=== PATIENT | male | born 1970 | race Caucasian/White ===

== ENCOUNTER → 2017-07-08 | Outpatient (REF) ==
[~2017-07-08] MED LIST: ACE3 PO; ACE325 PO; ACE500 PO; ACET-1966 PO; ALB17R INH; AMLO-96 PO; ASP325 PO; ASPI-1471 PO; BENZ100C4 PO; CELE-1 PO; CELE50CA2 PO; CEP500 PO; CLI150 PO; CYC10 PO; CYCL10TA29 PO; DOXY-179 PO; ELET20TA2 PO; ENAL1TAB35 PO; ENAL20TA99 PO; ESC10 PO; ESCI20TA38 PO; GUAI600T84; HCTZ; HYDR-2966 PO; IBU200 PO; IBU600 PO; KET10 PO; LAMO200T46 PO; LITHOBID PO; LOR10 PO; LOR5 PO; LOR5/325 PO; LORATADINE; LYRICA; MET10 PO; METO50TA19 PO; MULT1CAP41 PO; NALT50TA15 PO; NAP500 PO; NO MEDS; NO ROUTINE MEDS; PAN20 PO; PER PO; PREG100C45 PO; PROP100T2 PO; SCOT TD; SIMV-49 PO; TRA50 PO
--- NOTE | 2017-07-08 14:21 | RADIOLOGY IMAGING REPORT ---
[place] [facility] [place] NAME: Jalil Lord : 1970 MR: [id number] V: [id number] EXAM DATE: ORDERING PHYSICIAN: TENZIN LUCAS TECHNOLOGIST: [place] [facility] [place] Jalil Lord : 1970 Visit/Account:[id number] Date of Sevice: 07/08/2017 Exam type: FOOT 3 VIEW RIGHT History: Pain in ball of right foot, no known injury Comparison: None. Findings: There is no evidence of acute fracture, dislocation or significant arthritic change involving the rig ht foot. No opaque soft tissue foreign bodies are seen. IMPRESSION: 1. No acute osteoarticular abnormality of the right foot is seen Report Dictated By: Pastora Montes De Oca MD at 07/08/2017 2:15 PM Report E-Signed By: Pastora Montes De Oca MD at 07/08/2017 2:17 PM WSN:[email or web address]
== END ==
LOC: RAD 11:19
PROVIDERS: ATTEND Nurse Practitioner
DX: M79.671 Pain in right foot (principal)

== ENCOUNTER → 2017-07-09 | Outpatient (REF) ==
--- NOTE | 2017-07-09 14:36 | RADIOLOGY IMAGING REPORT ---
FACILITY: [facility] PATIENT NAME: Jalil Lord : 1970 MR: [id number] V: [id number] EXAM DATE: ORDERING PHYSICIAN: TENZIN LUCAS TECHNOLOGIST: Location: [facility] [place] Patient: Jalil Lord : 1970 Visit/Account:[id number] Date of Sevice: 07/09/2017 Exam type: VENOUS DOPP LOW RIGHT EXTREMIT History: Right calf pain Comparison: None. Findings: Right lower extremity veins were imaged including the right common femoral vein or saphenous vein sup erficial femoral vein popliteal vein posterior tibial vein anterior tibial vein and peroneal veins re vealing no evidence of intraluminal thrombi. The veins were compressible and demonstrated augmentati on. IMPRESSION: 1. No sonographic evidence DVT involving the right lower extremity veins Report Dictated By: Pastora Montes De Oca MD at 07/09/2017 2:30 PM Report E-Signed By: Pastora Montes De Oca MD at 07/09/2017 2:31 PM WSN:[email or web address]
== END ==
LOC: US 12:57
PROVIDERS: ATTEND Nurse Practitioner
DX: M79.604 Pain in right leg (principal)

== ENCOUNTER → 2017-07-12 | Outpatient (REF) ==
--- NOTE | 2017-07-12 13:00 | RADIOLOGY IMAGING REPORT ---
FACILITY: [facility] - [place] PATIENT NAME: Jalil Lord : 1970 MR: [id number] V: [id number] EXAM DATE: ORDERING PHYSICIAN: TENZIN LUCAS TECHNOLOGIST: Location: [facility] Patient: Jalil Lord : 1970 Visit/Account:[id number] Date of Sevice: 07/12/2017 Exam type: ORBITS FOREIGN BODY 1 VIEW History: Pre-MRI screening Comparison: None. Findings: No radiopaque metallic foreign bodies project over the orbits. Soft tissue density projects over the superior aspect of the left maxillary sinus likely related to polyps versus mucous retention cysts a s seen on a prior head CT from December 14, 2007 IMPRESSION: 1. No radiopaque metallic foreign bodies project over the orbits Report Dictated By: Pastora Montes De Oca MD at 07/12/2017 12:55 PM Report E-Signed By: Pastora Montes De Oca MD at 07/12/2017 12:56 PM WSN:[email or web address]
--- NOTE | 2017-07-12 15:24 | RADIOLOGY IMAGING REPORT ---
FACILITY: [facility] - [place] PATIENT NAME: Jalil Lord : 1970 MR: [id number] V: [id number] EXAM DATE: ORDERING PHYSICIAN: TENZIN LUCAS TECHNOLOGIST: Location: [facility] Patient: Jalil Lord : 1970 Visit/Account:[id number] Date of Sevice: 07/12/2017 MRI right foot Indication: Foot pain. Comparison: Plain films March 07, 2018 are reviewed. Technique: Sagittal STIR, coronal long axis T1-weighted and T2-weighted fat saturated, short axis axi al T2-weighted fat-saturated images were obtained through the right foot. Findings: There is abnormal, marrow edema identified within the distal shaft of the second metatarsal which ext ends into the neck and head region. Best seen on the T1 sagittal sequence, there is a linear fracture line within the second metatarsal neck. The marrow edema is centered about this subtle fracture line . No radiographic correlate on the recent plain films. Differential would favor a second metatarsal s tress fracture. There is surrounding soft tissue edema and periosteal edema. There are changes of ost eoarthritis at the second metatarsophalangeal joint. There is marrow edema seen within the base of th e proximal phalanx of the second toe. No discrete fracture line. This may be stress related as well. No other fractures identified. With respect to the hindfoot, the marrow pattern of the distal tibia, distal fibula, talus and calcan eus is normal. Hindfoot joints are maintained. The midfoot marrow pattern and the midfoot joints are normal. There are changes of osteoarthritis involving the first metatarsophalangeal joint. Subchondral edema is seen within the first metatarsal head. Intrinsic musculature of the foot is normal in signal. No atrophy. Flexor and extensor tendons appear intact. IMPRESSION: 1. Right foot second metatarsal stress fracture at the neck of the distal second metatarsal with surr ounding marrow edema and periosteal edema. 2. Abnormal marrow edema within the base of the proximal phalanx of the second toe. This may also be stress related. 3. 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 Report Dictated By: Emeka Don at 07/12/2017 3:04 PM Report E-Signed By: Emeka Don at 07/12/2017 3:20 PM WSN:[email or web address]
== END ==
LOC: MRI 07:33
PROVIDERS: ATTEND Nurse Practitioner
DX: M84.374A Stress fracture, right foot, initial encounter for fracture (principal); M19.071 Primary osteoarthritis, right ankle and foot
CPT/HCPCS: 70030; 73718

== ENCOUNTER → 2018-01-20 | Outpatient (REF) ==
--- NOTE | 2018-01-20 10:23 | RADIOLOGY IMAGING REPORT ---
FACILITY: [facility] - [place] PATIENT NAME: Jalil Lord : 1970 MR: [id number] V: [id number] EXAM DATE: ORDERING PHYSICIAN: TENZIN LUCAS TECHNOLOGIST: Location: [facility] Patient: Jalil Lord : 1970 Visit/Account:[id number] Date of Sevice: 01/20/2018 LIVER HISTORY: Elevated LFTs COMPARISON: None. FINDINGS: Gallbladder: Unremarkable; no stones or sludge. Liver: There are multiple hepatic cysts largest measuring 2.2 cm in diameter in the right lobe Common duct: Normal, pre-point three mm diameter. Pancreas: Partially obscured by bowel, visualized aspects unremarkable. Right kidney: I kidney appears unremarkable measuring 11.3 cm in length Upper abdominal aorta and IVC: Patent. Ascites: None visualized. IMPRESSION: Multiple hepatic cysts Report Dictated By: Pastora Montes De Oca MD at 01/20/2018 10:18 AM Report E-Signed By: Pastora Montes De Oca MD at 01/20/2018 10:20 AM WSN:[email or web address]
== END ==
LOC: US 01:39
PROVIDERS: ATTEND Nurse Practitioner
DX: K76.89 Other specified diseases of liver (principal)
CPT/HCPCS: 76705

== ENCOUNTER 2018-02-19 16:15 | Emergency (ER) | payer SELFPAY ==
[~2018-02-19 16:15] MED LIST changes: +AMLO-111 PO; -AMLO-96 PO
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
[2018-02-19] MEDS ORDERED: ATOR20TA22 PO (16:30)
[2018-02-19] MEDS ORDERED: ALBU8.5H IH ×2 (16:30→17:42)
--- NOTE | 2018-02-19 16:34 | EKG ---
FACILITY: [facility] - [place] PATIENT NAME: MICAH ENGLAND : [id number] MR: [id number] V: [id number] EXAM DATE: ORDERING PHYSICIAN: TROY PÉREZ TECHNOLOGIST: JADA Test Reason : ARM PAIN Blood Pressure : / mmHG Vent. Rate : 063 BPM Atrial Rate : 063 BPM P-R Int : 142 ms QRS Dur : 088 ms QT Int : 434 ms P-R-T Axes : 071 070 041 degrees QTc Int : 444 ms Sinus rhythm Poor R wave progression through anterior leads Nonspecific ST-T findings Confirmed by SAKINA CORONEL ([id number]) on 02/20/2018 3:19:26 AM Referred By: REVA Confirmed By:SAKINA CORONEL
[2018-02-19] MEDS ORDERED: ASPIRIN 81 MG CHEW PO ONE (16:45)
[2018-02-19] MEDS ORDERED: ALBUTEROL/IPRATROPIUM 3 ML NEB NEB ONE (16:45)
[2018-02-19 16:56] LABS: PLATELET COUNT, AUTOMATED 159 K/uL (150-450)
--- NOTE | 2018-02-19 17:17 | RADIOLOGY IMAGING REPORT ---
FACILITY: [facility] [place]IENT NAME: Jalil Lord : 1970 MR: [id number] V: [id number] EXAM DATE: ORDERING PHYSICIAN: TROY PÉREZ TECHNOLOGIST: Location: [facility] - [place] Patient: Jalil Lord : 1970 Visit/Account:[id number] Date of Sevice: 02/19/2018 EXAMINATION: Chest 2 Views HISTORY: Chest pressure. COMPARISON: 03/01/2017. FINDINGS: The lungs are hyperinflated but otherwise clear. No focal consolidation or pleural effusion. No pne umothorax. Normal cardiomediastinal silhouette, with normal heart size and pulmonary vascularity. Visualized osseous structures appear intact. IMPRESSION: 1. Stable hyperinflation of the lungs. 2. Chest otherwise negative. Report Dictated By: César Saldana MD at 02/19/2018 5:11 PM Report E-Signed By: César Saldana MD at 02/19/2018 5:12 PM WSN:[email or web address]
--- NOTE | 2018-02-19 17:21 | RADIOLOGY IMAGING REPORT ---
FACILITY: [facility] [place] PATIENT NAME: Jalil Lrod : 1970 MR: [id number] V: [id number] EXAM DATE: ORDERING PHYSICIAN: TROY PÉREZ TECHNOLOGIST: Location: [facility] Patient: Jalil Lord : 1970 Visit/Account:[id number] Date of Sevice: 02/19/2018 EXAMINATION: Right shoulder 2 views. HISTORY: Right shoulder pain. COMPARISON: None FINDINGS: No evidence of acute fracture or dislocation about the right shoulder. Normal alignment at the glenoh umeral and acromioclavicular joints. The subacromial space is preserved. Visualized upper right ribs appear intact. IMPRESSION: Negative right shoulder. Report Dictated By: César Saldana MD at 02/19/2018 5:12 PM Report E-Signed By: César Saldana MD at 02/19/2018 5:17 PM WSN:[email or web address]
[2018-02-19] MEDS ORDERED: predniSONE 20 MG TAB PO ONE (17:40)
[2018-02-19] MEDS ORDERED: PRED20TA6 PO (17:41)
[2018-02-19 17:42] VITALS: BP 144/97
== END 2018-02-19 17:59 | disposition home or self-care (01) ==
LOC: ER 16:24
DX: J44.1 Chronic obstructive pulmonary disease with (acute) exacerbation (principal); F17.210 Nicotine dependence, cigarettes, uncomplicated
CPT/HCPCS: 71046; 73030; 84484; 85025; 93005; 94640; 99284; J7512; J7620; 82040; 82247; 82310; 82374; 82435; 82565; 82947; 84075; 84132; 84155; 84295; 84450; 84460; 84520

== ENCOUNTER → 2018-05-05 | Outpatient (REF) ==
[~2018-05-05] MED LIST changes: +ALBU8.5H IH; +ATOR20TA22 PO; +PRED20TA6 PO
--- NOTE | 2018-05-05 13:53 | RADIOLOGY IMAGING REPORT ---
FACILITY: [facility] PATIENT NAME: Jalil Lord : 1970 MR: [id number] V: [id number] EXAM DATE: ORDERING PHYSICIAN: JESUS LANCASTER TECHNOLOGIST: Location: [facility] - [place] Patient: Jalil Lord : 1970 Visit/Account:[id number] Date of Sevice: 05/05/2018 SHOULDER MIN 2 VIEWS RIGHT HISTORY: Shoulder pain Additional history: None COMPARISON: None. FINDINGS: Osseous structures the right shoulder girdle are intact. No evidence of osteoarthrosis the right gle nohumeral joint. There is downsloping of the acromion process. IMPRESSION: No acute pathology identified. Downsloping acromion process which is a normal variant although can predispose to rotator cuff pathol ogy. Report Dictated By: Mohinder Medel MD at 05/05/2018 1:46 PM Report E-Signed By: Mohinder Medel MD at 05/05/2018 1:47 PM WSN:[email or web address] CARLOS
== END ==
LOC: RAD 12:15
PROVIDERS: ATTEND Orthopaedic Surgery Orthopaedic Surgery of the Spine
DX: M25.511 Pain in right shoulder (principal)

== ENCOUNTER → 2018-08-11 | Outpatient (REF) ==
[~2018-08-11] MED LIST changes: -AMLO-111 PO; +AMLO-125 PO
--- NOTE | 2018-08-11 11:20 | RADIOLOGY IMAGING REPORT ---
FACILITY: [facility] - [place] PATIENT NAME: Jalil Lord : 1970 MR: [id number] V: [id number] EXAM DATE: ORDERING PHYSICIAN: ADRIANNE MURRELL TECHNOLOGIST: Location: [facility] Patient: Jalil Lord : 1970 Visit/Account:[id number] Date of Sevice: 08/11/2018 Right elbow, three views. HISTORY: Fall three days ago, right elbow pain. COMPARISON: 04/11/2007 Minimal soft tissue swelling is present in the posterior elbow. The bones, joints, and soft tissues are otherwise unremarkable. No joint space narrowing. No evidence of joint effusion. No fractures a re identified. IMPRESSION: Negative for acute bony abnormality. Report Dictated By: Omar West MD at 08/11/2018 11:13 AM Report E-Signed By: Omar West MD at 08/11/2018 11:15 AM WSN:[email or web address]
--- NOTE | 2018-08-11 11:55 | RADIOLOGY IMAGING REPORT ---
FACILITY: [facility] PATIENT NAME: Jalil Lord : 1970 MR: [id number] V: [id number] EXAM DATE: ORDERING PHYSICIAN: ADRIANNE MURRELL TECHNOLOGIST: Location: [facility] [place] Patient: Jalil Lord : 1970 Visit/Account:[id number] Date of Sevice: 08/11/2018 Technique: SHOULDER MIN 2 VIEWS RIGHT HISTORY: Right arm pain Comparison studies: None FINDINGS: There is no acute fracture. The alignment of the right shoulder is congruent. There is ma rginal osteophytosis at the acromioclavicular joint. Soft tissues are unremarkable. IMPRESSION: 1. Mild degenerative changes at the acromioclavicular joint. Report Dictated By: Conor Kern DO at 08/11/2018 11:44 AM Report E-Signed By: Conor Kern DO at 08/11/2018 11:52 AM WSN:[email or web address]
== END ==
LOC: RAD 10:06
PROVIDERS: ATTEND Registered Nurse Psychiatric/Mental Health
DX: M25.511 Pain in right shoulder (principal); M25.521 Pain in right elbow

== ENCOUNTER 2018-09-21 17:02 | Emergency (ER) | payer SELFPAY ==
[~2018-09-21 17:02] MED LIST changes: -CEPH500T7 PO
[2018-09-21] MEDS ORDERED: ASPIRIN 81 MG CHEW PO ONE (17:25)
--- NOTE | 2018-09-21 17:35 | ER Report ---
History and Physical Time Seen By MD: 17:25 Hx. of Stated Complaint: PATIENT REPORTS LEFT UPPER BACK PAIN SINCE WEDNESDAY. WAS SEEN AT THE [facility] AND TOLD TO COME GET A CAT SCAN OF THE CHEST (ALIN RICHARDSON MD) HPI/ROS CHIEF COMPLAINT: Chest pain HISTORY OF PRESENT ILLNESS:48-year-old male comes emergency Department today with complaint of chest pain patient was seen at the [facility] reportedly awoke this morning with left-sided inferior rib pain patient is a long history of chronic pain issues over this is different than his baseline is also long history of COPD and is a smoker very thin and cachectic looking. Patient was sent here after having an elevated d-dimer no chest x-ray was performed no EKG was performed CBC was also performed. Due to the elevated d-dimer concerns this is a possible pulmonary embolus and was sent to the emergency department. Pain is also in with a CVA [place] so this could also be something else considering kidney stone or other pathology however due to the elevated d-dimer compelled to get CT scan for rule out patient other complaint is a mild nonproductive cough which is chronic in nature REVIEW OF SYSTEMS: Respiratory: Cough no shortness of breath Cardiovascular: Chest pain or palpitation Gastrointestinal: No vomiting, no abdominal pain. Musculoskeletal: Left flank back pain. Remainder of the 14 system rev: Yes (ALIN RICHARDSON MD) Allergies: Coded Allergies: Penicillins (Verified Allergy, Mild, 02/19/18) bupropion (Verified Allergy, Mild, 02/19/18) hydrocodone (Verified Allergy, Mild, ITCHING, 02/19/18) lactose (Verified Allergy, Mild, VOMITING, 02/19/18) lamotrigine (Verified Allergy, Mild, RASH, 02/19/18) latex (Verified Allergy, Mild, RASH, DIFF BREATHING, 02/19/18) lithium (Verified Allergy, Mild, 02/19/18) Home Meds Active Scripts Cephalexin 500 Mg Tab (KEFLEX 500 MG TAB) 500 Mg Tablet, 500 MG PO TID for i nfection, #20 TAB Prov:DONAVON VALDIVIA DO 09/21/18 Albuterol Sulfate 90 Mcg/Act (PROAIR HFA 90 MCG/ACT) 8.5 Gm Hfa.aer.ad, 2 PUFF IH Q4-6H, #1 INHALER 0 Refills Prov:TROY PÉREZ WHITE MIXING OPERATOR-BC 02/19/18 Prednisone (PREDNISONE) 20 Mg Tablet, 20 MG PO BID, #10 TAB Prov:TROY PÉREZ [facility]- 02/19/18 Reported Medications Albuterol Sulfate 90 Mcg/Act (PROAIR HFA 90 MCG/ACT) 8.5 Gm Hfa.aer.ad, 1-2 PUFF IH 3-4XD, INHALER 02/19/18 Atorvastatin Calcium (LIPITOR) 20 Mg Tablet, 1 TAB PO QDAY, TAB 02/19/18 Metoprolol Succinate (METOPROLOL SUCCINATE) 50 Mg Tab.er.24h, 2 TAB PO QDAY, TAB 03/01/17 Hydrochlorothiazide (HYDROCHLOROTHIAZIDE) 25 Mg Tablet, 1 TAB PO QDAY, TAB 03/09/16 Enalapril Maleate (ENALAPRIL MALEATE) 20 Mg Tablet, 20 MG PO QDAY 03/09/16 Reviewed Nurses Notes: Yes Old Medical Records Reviewed: Yes (ALIN RICHARDSON MD) Hx Smoking: Yes Smoking Status: Current: Every Day Smoker Hx Substance Use Disorder: Yes (alcohol) Hx Alcohol Use: Yes (using since age 15) (ALIN RICHARDSON MD) Constitutional Vital Sign - Last 24 Hours 09/21/18 09/21/18 09/21/18 09/21/18 17:08 17:10 17:22 17:30 Pulse 68 Resp 26 B/P (MAP) 137/100 (112) 138/102 (114) Pulse Ox 97 O2 Delivery Room Air 09/21/18 09/21/18 09/21/18 09/21/18 17:42 18:00 18:02 18:22 Pulse 68 67 69 Resp 25 25 25 B/P (MAP) 136/96 (109) Pulse Ox 93 94 94 09/21/18 09/21/18 18:30 18:42 Pulse 71 B/P (MAP) 128/95 (106) (DONAVON VALDIVIA DO) Physical Exam General Appearance: [The patient is alert, has no immediate need for airway protection and no current signs of toxicity.] [ ] Eyes: Pupils equal and round no injection. Respiratory: Mild tenderness to palpation of the left CV angle and percussive tenderness breath sounds normal Cardiac: regular rate and rhythm [ ] Gastrointestinal: Abdomen is soft and non tender, no masses, bowel sounds normal. Musculoskeletal: Neck: Neck is supple and non tender. Extremities have full range of motion and are non tender. Skin: No rashes or lesions. [ ] DIFFERENTIAL DIAGNOSIS: After history and physical exam differential diagnosis was considered for pulmonary embolus kidney stone pneumothorax muscle strain intercostal rib strain spontaneous fracture spontaneous pneumo (ALIN RICHARDSON MD) Medical Decision Making Data Points Result Diagram: 09/21/18 1736 09/21/18 1736 Laboratory Hematology Test 09/21/18 17:36 09/21/18 18:40 Red Blood Count 4.57 M/uL (4.00-5.60) Mean Corpuscular Volume 101.8 fL (80.0-96.0) Mean Corpuscular Hemoglobin 35.5 pg (26.0-33.0) Mean Corpuscular Hemoglobin Concent 34.9 g/dL (32.0-36.0) Red Cell Distribution Width 13.4 % (11.5-14.5) Mean Platelet Volume 9.0 fL (7.2-11.1) Neutrophils (%) (Auto) 58.3 % (39.4-72.5) Lymphocytes (%) (Auto) 26.0 % (17.6-49.6) Monocytes (%) (Auto) 13.2 % (4.1-12.4) Eosinophils (%) (Auto) 1.4 % (0.4-6.7) Basophils (%) (Auto) 1.1 % (0.3-1.4) Nucleated RBC Relative Count (auto) 0.1 /100WBC Neutrophils # (Auto) 4.6 K/uL (2.0-7.4) Lymphocytes # (Auto) 2.1 K/uL (1.3-3.6) Monocytes # (Auto) 1.1 K/uL (0.3-1.0) Eosinophils # (Auto) 0.1 K/uL (0.0-0.5) Basophils # (Auto) 0.1 K/uL (0.0-0.1) Nucleated RBC Absolute Count (auto) 0.01 K/uL Sodium Level 138 mmol/L (137-145) Potassium Level 4.0 mmol/L (3.5-5.0) Chloride Level 99 mmol/L (98-107) Carbon Dioxide Level 30 mmol/L (22-30) Blood Urea Nitrogen 18 mg/dl (9-21) Creatinine 0.60 mg/dl (0.66-1.25) Glomerular Filtration Rate Calc > 60.0 Random Glucose 94 mg/dl (75-110) Calcium Level 9.7 mg/dl (8.4-10.2) Total Bilirubin 0.8 mg/dl (0.2-1.3) Aspartate Amino Transf (AST/SGOT) 84 U/L (0-35) Alanine Aminotransferase (ALT/SGPT) 88 U/L (0-56) Alkaline Phosphatase 60 U/L (0-126) Troponin I < 0.012 ng/ml Total Protein 7.7 g/dl (6.3-8.2) Albumin 4.6 g/dl (3.5-5.0) Urine Color Yellow Urine Clarity Clear Urine pH 5.0 pH (4.8-9.5) Urine Specific Davy 1.011 Urine Protein Negative mg/dL (NEGATIVE) Urine Glucose (UA) Negative mg/dL (NEGATIVE) Urine Ketones Negative mg/dL (NEGATIVE) Urine Blood Negative (NEGATIVE) Urine Nitrite Negative (NEGATIVE) Urine Bilirubin Negative (NEGATIVE) Urine Urobilinogen Negative mg/dL (0.2-1.9) Urine Leukocyte Esterase Small (NEGATIVE) Urine RBC 1 /HPF (0-2/HPF) Urine WBC 15 /HPF (0-5/HPF) Urine Squamous Epithelial Cells None /LPF (</=FEW) Urine Bacteria Negative /HPF (NONE-FEW) Urine Mucus None /HPF (NONE-FEW) Chemistry Test 09/21/18 17:36 09/21/18 18:40 White Blood Count 8.0 k/uL (4.5-11.0) Red Blood Count 4.57 M/uL (4.00-5.60) Hemoglobin 16.2 g/dL (14.0-18.0) Hematocrit 46.6 % (42.0-52.0) Mean Corpuscular Volume 101.8 fL (80.0-96.0) Mean Corpuscular Hemoglobin 35.5 pg (26.0-33.0) Mean Corpuscular Hemoglobin Concent 34.9 g/dL (32.0-36.0) Red Cell Distribution Width 13.4 % (11.5-14.5) Platelet Count 168 K/uL (150-450) Mean Platelet Volume 9.0 fL (7.2-11.1) Neutrophils (%) (Auto) 58.3 % (39.4-72.5) Lymphocytes (%) (Auto) 26.0 % (17.6-49.6) Monocytes (%) (Auto) 13.2 % (4.1-12.4) Eosinophils (%) (Auto) 1.4 % (0.4-6.7) Basophils (%) (Auto) 1.1 % (0.3-1.4) Nucleated RBC Relative Count (auto) 0.1 /100WBC Neutrophils # (Auto) 4.6 K/uL (2.0-7.4) Lymphocytes # (Auto) 2.1 K/uL (1.3-3.6) Monocytes # (Auto) 1.1 K/uL (0.3-1.0) Eosinophils # (Auto) 0.1 K/uL (0.0-0.5) Basophils # (Auto) 0.1 K/uL (0.0-0.1) Nucleated RBC Absolute Count (auto) 0.01 K/uL Glomerular Filtration Rate Calc > 60.0 Calcium Level 9.7 mg/dl (8.4-10.2) Total Bilirubin 0.8 mg/dl (0.2-1.3) Aspartate Amino Transf (AST/SGOT) 84 U/L (0-35) Alanine Aminotransferase (ALT/SGPT) 88 U/L (0-56) Alkaline Phosphatase 60 U/L (0-126) Troponin I < 0.012 ng/ml Total Protein 7.7 g/dl (6.3-8.2) Albumin 4.6 g/dl (3.5-5.0) Urine Color Yellow Urine Clarity Clear Urine pH 5.0 pH (4.8-9.5) Urine Specific Davy 1.011 Urine Protein Negative mg/dL (NEGATIVE) Urine Glucose (UA) Negative mg/dL (NEGATIVE) Urine Ketones Negative mg/dL (NEGATIVE) Urine Blood Negative (NEGATIVE) Urine Nitrite Negative (NEGATIVE) Urine Bilirubin Negative (NEGATIVE) Urine Urobilinogen Negative mg/dL (0.2-1.9) Urine Leukocyte Esterase Small (NEGATIVE) Urine RBC 1 /HPF (0-2/HPF) Urine WBC 15 /HPF (0-5/HPF) Urine Squamous Epithelial Cells None /LPF (</=FEW) Urine Bacteria Negative /HPF (NONE-FEW) Urine Mucus None /HPF (NONE-FEW) Urinalysis Test 09/21/18 18:40 Urine Color Yellow Urine Clarity Clear Urine pH 5.0 pH (4.8-9.5) Urine Specific Davy 1.011 Urine Protein Negative mg/dL (NEGATIVE) Urine Glucose (UA) Negative mg/dL (NEGATIVE) Urine Ketones Negative mg/dL (NEGATIVE) Urine Blood Negative (NEGATIVE) Urine Nitrite Negative (NEGATIVE) Urine Bilirubin Negative (NEGATIVE) Urine Urobilinogen Negative mg/dL (0.2-1.9) Urine Leukocyte Esterase Small (NEGATIVE) Urine RBC 1 /HPF (0-2/HPF) Urine WBC 15 /HPF (0-5/HPF) Urine Squamous Epithelial Cells None /LPF (</=FEW) Urine Bacteria Negative /HPF (NONE-FEW) Urine Mucus None /HPF (NONE-FEW) (DONAVON VALDIVIA DO) EKG/Imaging Imaging Results: CT scan of the CTA pulmonary angiogram was obtained. The results of the study are CT CTA CHEST W & W/O CON HISTORY: chest pain ADDITIONAL HISTORY: None. TECHNIQUE: CTA chest with contrast. 3D coronal slab MIPs and 2D reconstructions in the coronal and sagittal planes were also created. One of the following dose optimization techniques was utilized in the performance of this exam: automated exposure control; adjustment of the mA and/or kv according to patient size; or use of iterative reconstruction technique. Specific details can be referenced in the facility's radiology CT exam operational policy. CONTRAST: 75 mL of Isovue-370 COMPARISON: Chest x-ray 09/21/2018 FINDINGS: Vessels: No acute filling defect within the main, lobar or segmental pulmonary arteries. Mild calcification of the coronary arteries. Lower neck: Negative. Heart and pericardium: Negative Mediastinum/hilum/lymph nodes: Negative. Lungs/pleura: Left lower lobe calcified granuloma. No consolidation or pleural effusion. 3 mm right middle lobe pulmonary nodule (image 243). Visualized upper abdomen: Simple hepatic cysts measuring up to 1.8 cm. Bones/soft tissues: Negative. Other findings: None significant IMPRESSION: 1. Negative examination for acute pulmonary embolism. 2. No other acute chest process identified. 3. 3 mm right middle lobe pulmonary nodule. Please refer to Fleischner Society guidelines below. The study was read by the radiologist. I viewed the images myself on the PACS system. (DONAVON VALDIVIA DO) ED Course/Re-evaluation ED Course Care was assumed at shift change from Dr. Richardson with a diagnostic CTA pending. Dr. Richardson ordered basic laboratory studies and urinalysis. Urinalysis returns signs of a low-grade infection, potentially pyelonephritis. Patient be treated with Keflex 500 mg 3 times a day. The CT angiogram was unremarkable for pulmonary embolism. Patient's advised to take ibuprofen for his back pain and flank pain. He is advised to follow-up with the downtown clinic next week if he is not improved. Decision to Disposition Date: September 21, 2018 Decision to Disposition Time: 19:32 (DONAVON VALDIVIA DO) Depart Departure Latest Vital Signs Vital Signs Date Time Temp Pulse Resp B/P (MAP) Pulse Ox O2 Delivery O2 Flow Rate FiO2 09/21/18 18:42 71 09/21/18 18:30 128/95 (106) 09/21/18 18:22 25 94 09/21/18 17:08 Room Air (DONAVON VALDIVIA DO) Impression: Primary Impression: Flank pain Additional Impression: Urinary tract infection Condition: Improved Disposition: HOME OR SELF-CARE New Scripts Cephalexin 500 Mg Tab (KEFLEX 500 MG TAB) 500 Mg Tablet 500 MG PO TID for infection, #20 TAB Prov: DONAVON VALDIVIA DO 09/21/18 Patient Instructions: Flank Pain (ED), Urinary Tract Infection in Men (ED) Additional Instructions: Take ibuprofen 200 mg 3 tablets 3 times a day Take antibiotic Keflex 500 mg 3 times daily Drink plenty of water Follow-up with downtown clinic if unimproved in 3-5 days Problem Qualifiers Additional Impression: Urinary tract infection Urinary tract infection type: acute cystitis Hematuria presence: without hematuria Qualified Codes: N30.00 - Acute cystitis without hematuria ALIN RICHARDSON MD September 21, 2018 17:35 DONAVON VALDIVIA DO September 21, 2018 19:32
--- NOTE | 2018-09-21 17:47 | EKG ---
[place]AC[place] [facility] [place] NAME: MICAH ENGLAND : [id number] MR: [id number] V: [id number] EXAM DATE: ORDERING PHYSICIAN: ALIN ARGUETA TECHNOLOGIST: WADE Test Reason : SIDE PAIN Blood Pressure : / mmHG Vent. Rate : 066 BPM Atrial Rate : 066 BPM P-R Int : 146 ms QRS Dur : 086 ms QT Int : 442 ms P-R-T Axes : 064 072 041 degrees QTc Int : 463 ms Normal sinus rhythm Normal ECG When compared with ECG of 19-FEB-2018 16:24, Previous ECG has undetermined rhythm, needs review Confirmed by CARMEN MORALES ([id number]) on 09/21/2018 7:25:54 PM Referred By: KENDALL Confirmed By:CARMEN MORALES
[2018-09-21 17:54] LABS: PLATELET COUNT, AUTOMATED 168 K/uL (150-450)
[2018-09-21 18:30] VITALS: BP 128/95
[2018-09-21] MEDS ORDERED: NS(*) 0.9% 50 ML BAG 50 ML ONE (18:42)
[2018-09-21] MEDS ORDERED: IOPAMIDOL 76% 150 ML INFUS BTL 150 ML ONE (18:42)
--- NOTE | 2018-09-21 19:20 | RADIOLOGY IMAGING REPORT ---
[place] [facility] [place] NAME: Jalil Lord : 1970 MR: [id number] V: [id number] EXAM DATE: ORDERING PHYSICIAN: ALIN ARGUETA TECHNOLOGIST: Location: [facility] - [place] Patient: Jalil Lord : 1970 Visit/Account:[id number] Date of Sevice: 09/21/2018 CT CTA CHEST W & W/O CON HISTORY: chest pain ADDITIONAL HISTORY: None. TECHNIQUE: CTA chest with contrast. 3D coronal slab MIPs and 2D reconstructions in the coronal and sagittal planes were also created. One of the following dose optimization techniques was utilized in the performance of this exam: automated exposure control; adjustment of the mA and/or kv according to patient size; or use of iterative reconstruction technique. Specific details can be referenced in [facility] facility's radiology CT exam operational policy. CONTRAST: 75 mL of Isovue-370 COMPARISON: Chest x-ray 09/21/2018 FINDINGS: Vessels: No acute filling defect within the main, lobar or segmental pulmonary arteries. Mild calci fication of the coronary arteries. Lower neck: Negative. Heart and pericardium: Negative Mediastinum/hilum/lymph nodes: Negative. Lungs/pleura: Left lower lobe calcified granuloma. No consolidation or pleural effusion. 3 mm righ t middle lobe pulmonary nodule (image 243). Visualized upper abdomen: Simple hepatic cysts measuring up to 1.8 cm. Bones/soft tissues: Negative. Other findings: None significant IMPRESSION: 1. Negative examination for acute pulmonary embolism. 2. No other acute chest process identified. 3. 3 mm right middle lobe pulmonary nodule. Please refer to Fleischner Society guidelines below. FLEISCHNER SOCIETY FOLLOW-UP GUIDELINES FOR NEWLY DETECTED INCIDENTAL NODULES IN PERSONS 35 YEARS OF AGE OR OLDER. *These recommendations do NOT apply to lung cancer screening, patients with immunosuppression or shantell ents with a known primary malignancy. SOLITARY SOLID NODULE If nodule size is < 6 mm: * Low risk patient ? No routine follow-up. * High risk patient ? Optional CT at 12 months. If nodule size is 6-8 mm: * Low risk patient ? CT at 6-12 months, then consider CT at 18-24 months if no change. * High risk patient ? CT at 6-12 months, then CT at 18-24 months if no change. If nodule size is > 8 mm: * Low risk patient ? Consider CT at 3, 9 and 24 months (if no change), PET/CT, tissue sampling or a combination thereof. * High risk patient ? Consider CT at 3, 9 and 24 months (if no change), PET/CT, tissue sampling, or a combination thereof. LOW RISK PATIENT: Minimal or absent history of tobacco use and of other known risk factors. HIGH RISK PATIENT: Tobacco use, family history of lung cancer, upper pulmonary lobe location of nodul e, presence of emphysema, pulmonary fibrosis, older age. Thiagohoivonne H, Contreras DP, Mayuro JM, et al. Guidelines for Management of Incidental Pulmonary Nodules Dete cted on CT Images: From the Fleischner Society 2017. Radiology. Report Dictated By: Paulo Sorto MD at 09/21/2018 7:10 PM Report E-Signed By: Paulo Sorto MD at 09/21/2018 7:16 PM WSN:[email or web address]
[2018-09-21] MEDS ORDERED: CEPH500T7 PO (19:37)
[2018-09-21] MEDS ORDERED: CEPHALEXIN MONO 500 MG CAP PO ONE (19:40)
== END 2018-09-21 19:52 | disposition home or self-care (01) ==
LOC: ER 17:17
DX: F17.210 Nicotine dependence, cigarettes, uncomplicated (principal); N30.00 Acute cystitis without hematuria; M54.9 Dorsalgia, unspecified; R10.9 Unspecified abdominal pain
CPT/HCPCS: 71275; 81001; 84484; 85025; 87088; 93005; 99284; J7050; Q9967; 82040; 82247; 82310; 82374; 82435; 82565; 82947; 84075; 84132; 84155; 84295; 84450; 84460; 84520

== ENCOUNTER → 2018-09-21 | Outpatient (REF) ==
[~2018-09-21] MED LIST changes: +CEPH500T7 PO
[2018-09-21 16:11] LABS: PLATELET COUNT, AUTOMATED 180 K/uL (150-450)
--- NOTE | 2018-09-21 17:35 | RADIOLOGY IMAGING REPORT ---
FACILITY: [facility] - [place] PATIENT NAME: Jalil Lord : 1970 MR: [id number] V: [id number] EXAM DATE: ORDERING PHYSICIAN: IMANI MENJIVAR TECHNOLOGIST: Location: [facility] [place] Patient: Jalil Lord : 1970 Visit/Account:[id number] Date of Sevice: 09/21/2018 Chest with lateral, 2 views. HISTORY: Left-sided rib and chest pain for 5 days. COMPARISON: 02/19/2018. The heart and mediastinum are unremarkable. No bulky adenopathy. Pulmonary vessels are unremarkable . The lungs are hyperinflated, unchanged. The pleural surfaces are unremarkable. No pneumothorax. A healed fracture is present laterally in the left seventh rib. No acute bony abnormalities. IMPRESSION: Hyperinflated lungs suggesting reactive airway disease or COPD. Healed left seventh rib fracture. Otherwise no evidence of acute cardiopulmonary disease. Report Dictated By: Omar West MD at 09/21/2018 5:29 PM Report E-Signed By: Omar West MD at 09/21/2018 5:31 PM WSN:[email or web address]
== END ==
LOC: RAD 15:47
PROVIDERS: ATTEND Family Medicine
DX: R07.9 Chest pain, unspecified (principal); F17.210 Nicotine dependence, cigarettes, uncomplicated
CPT/HCPCS: 36415; 71046; 85025; 85379

== ENCOUNTER 2018-11-06 15:33 | Emergency (ER) | payer SELFPAY ==
[~2018-11-06 15:33] MED LIST changes: +CEPH500T7 PO
--- NOTE | 2018-11-06 15:35 | ER Report ---
History and Physical Time Seen By : 15:33 HPI/ROS CHIEF COMPLAINT: Possible spider bite HISTORY OF PRESENT ILLNESS: This is a 48-year-old male who presents to the emergency department for a possible spider bite. 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 He decided come in for an evaluation. He denies fevers or chills. Intermittent nausea no vomiting. No diarrhea, no other systemic rashes identified. REVIEW OF SYSTEMS: Respiratory: No cough, no dyspnea. Cardiovascular: No chest pain, no palpitations. Gastrointestinal: No vomiting, no abdominal pain. Musculoskeletal: No back pain. Integumentary: As above. Allergies: Coded Allergies: Penicillins (Verified Allergy, Mild, 02/19/18) bupropion (Verified Allergy, Mild, 02/19/18) hydrocodone (Verified Allergy, Mild, ITCHING, 02/19/18) lactose (Verified Allergy, Mild, VOMITING, 02/19/18) lamotrigine (Verified Allergy, Mild, RASH, 02/19/18) latex (Verified Allergy, Mild, RASH, DIFF BREATHING, 02/19/18) lithium (Verified Allergy, Mild, 02/19/18) Home Meds Active Scripts Cephalexin 500 Mg Tab (KEFLEX 500 MG TAB) 500 Mg Tablet, 500 MG PO TID for 6 Days, #18 TAB Prov:TROY PÉREZ- 11/06/18 Albuterol Sulfate 90 Mcg/Act (PROAIR HFA 90 MCG/ACT) 8.5 Gm Hfa.aer.ad, 2 PUFF IH Q4-6H, #1 INHALER 0 Refills Prov:TROY PÉREZP-BC 02/19/18 Reported Medications Albuterol Sulfate 90 Mcg/Act (PROAIR HFA 90 MCG/ACT) 8.5 Gm Hfa.aer.ad, 1-2 PUFF IH 3-4XD, INHALER 02/19/18 Atorvastatin Calcium (LIPITOR) 20 Mg Tablet, 1 TAB PO QDAY, TAB 02/19/18 Metoprolol Succinate (METOPROLOL SUCCINATE) 50 Mg Tab.er.24h, 2 TAB PO QDAY, TAB 03/01/17 Hydrochlorothiazide (HYDROCHLOROTHIAZIDE) 25 Mg Tablet, 1 TAB PO QDAY, TAB 03/09/16 Enalapril Maleate (ENALAPRIL MALEATE) 20 Mg Tablet, 20 MG PO QDAY 03/09/16 Discontinued Scripts Cephalexin 500 Mg Tab (KEFLEX 500 MG TAB) 500 Mg Tablet, 500 MG PO TID for infection, #20 TAB Prov:DONAVON VALDIVIA DO 09/21/18 Prednisone (PREDNISONE) 20 Mg Tablet, 20 MG PO BID, #10 TAB Prov:TROY PÉREZ DRYWALL PROFESSIONAL-BC 02/19/18 Past Medical/Surgical History Patient has a past medical and surgical history of TIA, hypertension, hypercholesterolemia, COPD, wears glasses, cataract in the right eye, history of alcohol abuse however has been sober since 2006, bipolar. Reviewed Nurses Notes: Yes Hx Smoking: Yes Smoking Status: Current: Every Day Smoker Hx Substance Use Disorder: Yes (alcohol) Hx Alcohol Use: Yes (using since age 15) Constitutional Vital Sign - Last 24 Hours 11/06/18 11/06/18 15:37 16:49 Temp 97.5 Pulse 80 85 Resp 16 16 B/P (MAP) 154/99 155/96 (115) Pulse Ox 90 92 O2 Delivery Room Air Room Air Physical Exam General Appearance: The patient is alert, has no immediate need for airway protection and no current signs of toxicity. Eyes: Pupils equal and round no injection. Respiratory: Chest is non tender, lungs are clear to auscultation. Cardiac: regular rate and rhythm. Gastrointestinal: Abdomen is soft and non tender, no masses, bowel sounds normal. Musculoskeletal: Neck: Neck is supple and non tender. Extremities have full range of motion and are non tender. Skin: There is an area that had a blister that had ruptured, the base of the rup tured blister is pink, no drainage, the surrounding tissue does have some erythema and the start of a cellulitic infection with some warmth. There is a another area that looks as though it had blistered and ruptured as well, just adjacent. There are no petechial or purpura rashes, no systemic rashes, no rashes on the palms. No identifiable puncture wounds. It is blanchable. DIFFERENTIAL DIAGNOSIS: After history and physical exam differential diagnosis was considered for [place] spotted fever, cellulitis, allergic reaction. Medical Decision Making ED Course/Re-evaluation ED Course The patient was admitted to room. A history and physical obtained. Differential diagnoses were considered. After evaluation the patient, I did consider doxycycline however the rash is not systemic, does not resemble workouts without a fever, this is likely a cellulitic infection could be secondary to a bite however unable to determine this at the time. Patient was started on Keflex, he was instructed to monitor closely, if he notices any other significant changes including but not limited to a systemic rash specifically noted to the palms and the soles of the feet he is to return immediately. Patient expressed understanding and was discharged home. Decision to Disposition Date: Nov 06, 2018 Decision to Disposition Time: 16:24 Depart Departure Latest Vital Signs Vital Signs Date Time Temp Pulse Resp B/P (MAP) Pulse Ox O2 Delivery O2 Flow Rate FiO2 11/06/18 16:49 85 16 155/96 (115) 92 Room Air 11/06/18 15:37 97.5 Impression: Primary Impression: Cellulitis of right lower leg Additional Impression: Bite from insect Condition: Improved Disposition: HOME OR SELF-CARE New Scripts Cephalexin 500 Mg Tab (KEFLEX 500 MG TAB) 500 Mg Tablet 500 MG PO TID for 6 Days, #18 TAB Prov: TROY PÉREZ Fabio DRYWALL PROFESSIONAL-BC 11/06/18 Patient Instructions: Black Spider Bite (ED), Cellulitis (ED), [place] Spotted Fever (ED) Additional Instructions: We are unable to determine what bit you, there is however the beginning of a skin infection developing called cellulitis. My suspicion for a tick bite is low, but monitor for signs of [place] spotted fever, note the printed materials we have provided. Take the Keflex as prescribed. If the wound becomes worse after about 72 hours or you notice any other concerning changes, return to the ED for reevaluation. Follow up with the [facility] clinic this week for reevaluation too. Drink plenty of water. Get plenty of rest. Keep the open part of the wound covered with a bandage. Return to the ED for any other concerns or worsening symptoms. Problem Qualifiers Additional Impression: Bite from insect Encounter type: initial encounter Site of insect bite: lower leg Laterality: right Qualified Codes: S80.861A - Insect bite (nonvenomous), right lower leg, initial encounter; W57.XXXA - Bitten or stung by nonvenomous insect and other nonvenomous arthropods, initial encounter TROY PÉREZP-HEIKE Nov 06, 2018 15:35
[2018-11-06] MEDS ORDERED: CEPH500T7 PO (16:19)
[2018-11-06 16:49] VITALS: BP 155/96
== END 2018-11-06 16:50 | disposition home or self-care (01) ==
LOC: ER 15:37
DX: L03.115 Cellulitis of right lower limb (principal); S80.861A Insect bite (nonvenomous), right lower leg, initial encounter; W57.XXXA Bitten or stung by nonvenomous insect and other nonvenomous arthropods, initial encounter
CPT/HCPCS: 99281